=== PATIENT | male | born 1960 | race Caucasian/White ===

== ENCOUNTER → 2016-07-26 | Outpatient (CLI) | payer OTHER ==
[2016-07-26 07:56] LABS: BASOPHILS # (AUTO) 0.01 10*3/UL; BASOPHILS % (AUTO) 0.2 % (0-1); EOSINOPHILS # (AUTO) 0.21 10*3/UL; EOSINOPHILS % (AUTO) 3.4 % (0-8); HEMATOCRIT 43.7 % (42.0-52.0); HEMOGLOBIN 15.2 g/dL (14.0-18.0); LYMPHOCYTES # (AUTO) 1.22 10*3/uL; MEAN CORPUSCULAR HEMOGLOBIN 28.7 PG (27-31); MEAN CORPUSCULAR HGB CONC 34.8 g/dL (33-37); MEAN CORPUSCULAR VOLUME 82.5 FL (80-90); MEAN PLATELET VOLUME 9.3 FL (7.4-12.2); MONOCYTES # (AUTO) 0.77 10*3/UL (0.3-0.8); MONOCYTES % (AUTO) 12.6 % (5-15); NEUTROPHILS # (AUTO) 3.87 10*3/UL; NEUTROPHILS % (AUTO) 63.3 % (50-80)
[2016-07-26 07:57] LABS: PLATELET MORPHOLOGY COMMENT NORMAL MORPHOLOGY (NORM); RBC MORPHOLOGY COMMENT NORMAL MORPHOLOGY (NORM); WBC MORPHOLOGY COMMENT NORMAL MORPHOLOGY (NORM)
[2016-07-26 08:06] LABS: BLOOD UREA NITROGEN 19 mg/dL (7-22); BUN/CREATININE RATIO 21.11 (6-20); CHOL/HDL RATIO 3.97 RATIO (0-4.0); EST GLOMERULAR FILTRATION > 60 (>60 ml/min/1.73m(2)); HDL CHOLESTEROL 42 mg/dL (40-150); SERUM ALBUMIN 3.9 g/dL (3.5-4.8); SERUM CHOLESTEROL 167 mg/dL (120-200)
== END ==
LOC: LAB 07:43
PROVIDERS: ATTEND Nurse Practitioner Family
DX: Z00.00 Encounter for general adult medical examination without abnormal findings (principal)
CPT/HCPCS: 36415; 80053; 80061; 84443; 85025

== ENCOUNTER → 2016-08-15 | Outpatient (CLI) | payer OTHER ==
--- NOTE | 2016-08-15 16:58 | DI ---
LUMBAR SPINE SERIES, 08/15/2016 3:16 PM: Clinical History: Radiculopathy with lower extremity symptoms. Previous Exam: 05/11/2014. A routine upright 3 view study and upright lateral flexion and extension views are submitted. There a re old compression fractures of L1 and L2, and the remaining lumbar vertebral bodies are of normal he ight. There is severe disc space narrowing at L2-3 with mild narrowing from L3-4 through L5-S1. There is a grade 1 reverse spondylolisthesis at L2-3 and a minimal grade 1 reverse spondylolisthesis at L3 -4. Flexion and extension maneuvers demonstrate no instability. The pedicles are normal. Degenerative arthritic changes are present in the L4-5 and L5-S1 apophyseal joints. Both SI joints are normal. Readin. There is disc space narrowing from L2-3 through L3-4 and there are grade 1 reverse spondylolisthe sis changes at L2-3 and L3-4. No instability is noted with flexion and extension maneuvers. 2. Degenerative arthritic changes are present in the apophyseal joints bilaterally at L4-5 and L5-S1 . 3. There are chronic compression fractures at L1 and L2 that are unchanged from the previous exam.
--- NOTE | 2016-08-16 09:09 | DI ---
RIGHT FOOT, 08/15/2016 3:11 PM: Clinical History: Right foot pain. Previous Exam: None at this facility. 3 views are submitted. There is no acute soft tissue, osseous, or joint abnormality. Reading: Normal right foot exam.
== END ==
LOC: MOB RAD 15:21
PROVIDERS: ATTEND Podiatrist Foot & Ankle Surgery
DX: M79.671 Pain in right foot (principal); M48.06 Spinal stenosis, lumbar region; M47.26 Other spondylosis with radiculopathy, lumbar region; M48.56XD Collapsed vertebra, not elsewhere classified, lumbar region, subsequent encounter for fracture with routine healing
CPT/HCPCS: 72114; 73630